=== PATIENT | female | born 1995 | race Caucasian/White ===

== ENCOUNTER 2023-07-18 19:44 | Emergency (ER) | payer OTHER ==
[~2023-07-18] VITALS: Ht 170.2 cm; Wt 61.2 kg
[2023-07-18] MEDS ORDERED: IBUPROFEN 600 MG TABLET ONE (20:55)
[2023-07-18] MEDS: IBUPROFEN 600 MG TABLET PO ONE (20:57)
[2023-07-18 21:35] VITALS: BP 122/80; TEMP 97.9; O2SAT 98
== END 2023-07-18 22:23 | disposition home or self-care (01) ==
LOC: ER 19:49
DX: R07.89 Other chest pain (principal); Z88.0 Allergy status to penicillin; Z88.2 Allergy status to sulfonamides
CPT/HCPCS: 71045-TC